=== PATIENT | female | born 1970 | race Two or more races ===

== ENCOUNTER → 2016-11-17 | Day surgery (SDC) | payer OTHER ==
[~2016-11-17] MED LIST: OMEPRAZOLE40 M1 PO; PAXIL40 MG PO; ZYRTEC10 M1 PO
--- NOTE | ~2016-11-17 | OR ---
Unit #: [id number] #: [id number] Patient: VENKAT RASCON [id number] [address] [address] [id number] O MR#: [id number] NAME: VENKAT RASCON ROOM: Date of Procedure: 11/17/2016 Admission Date: 11/17/2016 Surgeon: Stephen Ren M.D. : 1970 Attending Physician: Stephen Ren M.D. Referring Physician: Stephen Ren M.D. Primary Care Physician: [facility] OPERATIVE REPORT PROCEDURE PERFORMED Esophagogastroduodenoscopy with biopsies. INDICATIONS Significant upper abdominal pain, mostly on the left upper quadrant. She is status post cholecystectomy in a remote past. MEDICATIONS Monitored anesthesia. POSTOPERATIVE FINDINGS 1. Normal esophagus. 2. Mild gastritis, biopsies taken. 3. Normal duodenum and distal duodenum. PLAN CT scan of abdomen for further evaluation of her pain. DESCRIPTION OF PROCEDURE The patient was explained of the procedure, risks, and benefits along with the risks and benefits of anesthesia. She was brought to the endoscopy room. Propofol anesthesia was given. Bite block was placed. The scope was passed down the mouth into esophagus, stomach, duodenum, and distal duodenum. Findings as described. Biopsies taken in antrum and body. Gently, the scope was pulled out. She tolerated it well. No major complications were seen. Dictated by... Neelima Adame/kelby TD: 11/18/2016 06:57 JOB #: [id number] CC: [facility] Unit #: [id number] #: [id number] Patient: VENKAT RASCON OPERATIVE REPORT Page 1 of 1 X Stephen Ren MD X PROCEDURE OPERATIVE NOTE
[2016-11-17 14:31] LABS: BASOPHIL% 0.2 % (0-2.5); EOSINOPHIL# 0.1 X10e3 (0-0.7); EOSINOPHIL% 1.1 % (0.0-7.0); HEMATOCRIT 43.1 % (35.0-45.0); MEAN CELL VOLUME 83.6 FL (83-96); MEAN CORPUSCULAR HEMOGLOBIN 27.2 PG (28-34); MEAN CORPUSCULAR HGB CONC 32.5 g/dL (30-36); MEAN PLATELET VOLUME 8.5 FL (6.5-11.5); MONOCYTE# 0.6 X10e3 (0-1.0); MONOCYTE% 8.7 % (3.0-12.0); NEUTROPHIL# 3.9 X10e3 (1.5-7.1); PLATELET COUNT 164 X10e3 (140-420); RED BLOOD COUNT 5.15 X10e (3.90-5.30); WHITE BLOOD COUNT 6.5 X10e3 (4.0-10.5)
[2016-11-17 14:34] LABS: DIFF IND NO
[2016-11-17 14:58] LABS: BILIRUBIN,TOTAL 0.7 mg/dL (0.2-2.0); CALCIUM SERUM 9.3 mg/dL (8.4-10.2); CREATININE SERUM 0.5 mg/dL (0.6-1.4); GLOM FILT RATE Estimated 117.7 mL/min (>60); POTASSIUM 3.8 mmol/L (3.5-5.1)
== END | disposition home or self-care (01) ==
LOC: COPS 11:00
PROVIDERS: Internal Medicine
DX: K29.50 Unspecified chronic gastritis without bleeding (principal); K21.9 Gastro-esophageal reflux disease without esophagitis; F32.9 Major depressive disorder, single episode, unspecified; E16.2 Hypoglycemia, unspecified; Z88.5 Allergy status to narcotic agent; Z90.49 Acquired absence of other specified parts of digestive tract; Z98.51 Tubal ligation status; Z79.899 Other long term (current) drug therapy
CPT/HCPCS: 80053; 82150; 82947; 83690; 85025; 88305; 88312; J2250

== ENCOUNTER → 2016-12-01 | Outpatient (CLI) | payer OTHER ==
--- NOTE | ~2016-12-01 | CT2 ---
[facility] A Service of [facility] & [facility] RADIOLOGY TEXT RESULTS PATIENT: VENKAT RASCON [facility] 74 UNIT #: [id number] AGE: [address]: Stephen Ren MD SEX: F ORDER DR: [id number] [facility] [address] [place], [place] [address] [id number] O MR#: [id number] Acc #: [id number] NAME: VENKAT RASCON : 1970 SEX: F STUDY DATE/TIME: 12/01/2016 10:04 UNIT: [facility] ROOM: STUDY DESCRIPTION: CT Abd and Pelv W Cont Attending Physician: Stephen Ren M.D. Referring Physician: Stephen Ren M.D. Ordering Physician: Stephen Ren M.D. MEDICAL IMAGING REPORT This report is preliminary unless electronic signature is present EXAM CT of abdomen and pelvis with contrast HISTORY Left upper quadrant pain. Center abdominal pain. Symptoms for 5-[address] images were obtained from dome of the diaphragm through the symphysis pubis following administration of oral and intravenous contrast material. This CT exam was performed with one or more of the following radiation dose reduction techniques: automatic exposure control, adjustment of mA and/or kV according to patient size, and iterative reconstruction. FINDINGS Previously identified 8 mm nodule at the right lung base has resolved. I do not see any new pulmonary nodules or masses. Gallbladder is surgically absent. Spleen appears unremarkable, as are the stomach and proximal small bowel. Patient does have diffuse hepatic steatosis. No focal hepatic lesions are identified. Pancreas is within normal limits, as are the adrenal glands. Low-attenuation lesion is seen within the right kidney which measures higher in density than a simple cyst. Left kidney appears unremarkable. There is no evidence of mechanical bowel obstruction. Patient's appendix is visualized and is within normal limits. There is a left ovarian cyst. Uterus appears unremarkable, as does the right ovary. No free fluid or adenopathy is seen within the pelvis. There is no evidence of mechanical bowel obstruction. Review of bony windows does not demonstrate any aggressive osseous STS. [facility] A Service of [facility] & [facility] RADIOLOGY TEXT RESULTS PATIENT: VENKAT RASCON LOCATION: [facility] : 74 UNIT #: [id number] AGE: [address]: Stephen Ren MD SEX: F ORDER DR: abnormalities. IMPRESSION 1. No acute intraabdominal or intrapelvic process is seen to account for the patient's symptomatology. 2. Simple-appearing left renal cyst. 3. The appendix is visualized and is within normal limits. 4. Probable right renal cyst. It does measure higher in density than a simple cyst, however further evaluation with dedicated renal ultrasound is recommended. 5. Diffuse hepatic steatosis. Dictated by... Hannah Gaytan M.D. THIS IS AN ELECTRONICALLY VERIFIED REPORT Hannah Gaytan M.D. at 12/02/2016 2:12 PM AFF/pcl TD: 12/01/2016 23:19 JOB #: [id number] MEDICAL IMAGING REPORT Page 1 of 1 COPY
== END | disposition home or self-care (01) ==
LOC: CCAT 08:23
DX: R10.33 Periumbilical pain (principal); N28.1 Cyst of kidney, acquired; K76.0 Fatty (change of) liver, not elsewhere classified
CPT/HCPCS: 74177; Q9967